=== PATIENT | female | born 1965 | race African-American/Black ===

== ENCOUNTER 2017-08-21 00:23 | Inpatient (IN) | payer BC, MEDICAID, OTHER ==
[~2017-08-21] VITALS: Ht 162.6 cm; Wt 118.8 kg
[2017-08-21] MEDS ORDERED: SODIUM CHLORIDE 0.9% 1,000 ML IV ONE (02:30)
[2017-08-21] MEDS ORDERED: OXYMETAZOLINE HCL NASAL SPRAY 15ML BOTHNSTRLS SCH (02:30)
[2017-08-21 02:47] LABS: MEAN CORPUSCULAR HEMOGLOBIN 35.3 pg (28.0-32.0); MEAN CORPUSCULAR VOLUME 107.9 fL (81.0-99.0); MEAN PLATELET VOLUME 9.8 fl (7.4-10.4); PLATELET 69 x1000/uL (130-400); RED BLOOD CELL COUNT 1.89 mill/uL (4.2-5.4); RED CELL DISTRIBUTION WIDTH 17.1 % (11.6-14.6)
[2017-08-21 02:53] LABS: HEMATOCRIT. 20.4 % (36.0-48.0); HEMOGLOBIN. 6.7 g/dL (12.0-16.0)
[2017-08-21 04:26] LABS: CARBON DIOXIDE 30 mEq/L (21-32); CHLORIDE 105 mEq/L (98-107)
[2017-08-21] MEDS ORDERED: ACETAMINOPHEN 500MG TABLET PO ONE (04:45)
[2017-08-21 04:48] LABS: INR 1.1; PROTHROMBIN TIME 11.5 sec (9.4-11.6)
[2017-08-21 07:31] LABS: T4 FREE 0.69 ng/dL (0.76-1.46)
[2017-08-21] MEDS ORDERED: SODIUM CHLORIDE 0.9% 1,000 ML IV SCH (07:40)
[2017-08-21] MEDS ORDERED: MAGNESIUM/ALUMINUM HYDROXIDE/SIMETHICONE 30ML UDC PO PRN (07:45)
[2017-08-21] MEDS ORDERED: DIPHENHYDRAMINE 50MG/ML VIAL IV PRN (07:45)
[2017-08-21] MEDS ORDERED: ONDANSETRON HCL 4MG/2ML VIAL IV PRN (07:45)
[2017-08-21 08:06] LABS: NUCLEATED RED BLOOD CELLS 14 /100 WBC; PLATELET ESTIMATE DECREASED
[2017-08-21 08:40] LABS: VITAMIN B12 SERUM 559 pg/mL (211-911)
[2017-08-21 10:07] LABS: TOTAL IRON BINDING CAPACITY 262 ug/dL (250-450)
[2017-08-21 14:41] VITALS: BP 114/61
[2017-08-21] MEDS: LEVOTHYROXINE SODIUM 100MCG TABLET PO SCH (16:13)
[2017-08-21 16:21] VITALS: BP 114/61
[2017-08-21] MEDS: ACETAMINOPHEN 325MG TABLET PO PRN (17:06)
[2017-08-21 20:00] VITALS: BP 112/51
[2017-08-21 21:08] LABS: MEAN CORPUSCULAR HEMOGLOBIN 34.1 pg (28.0-32.0); MEAN CORPUSCULAR VOLUME 101.9 fL (81.0-99.0); PLATELET 115 x1000/uL (130-400); RED BLOOD CELL COUNT 2.03 mill/uL (4.2-5.4); RED CELL DISTRIBUTION WIDTH 21.1 % (11.6-14.6)
[2017-08-21 21:15] LABS: HEMATOCRIT. 20.7 % (36.0-48.0); HEMOGLOBIN. 6.9 g/dL (12.0-16.0)
[2017-08-21 22:50] VITALS: BP 114/65
[2017-08-21 22:50] LABS: NUCLEATED RED BLOOD CELLS 14 /100 WBC; PLATELET ESTIMATE DECREASED
[2017-08-21 23:15] VITALS: BP 122/77
[2017-08-22 00:15] VITALS: BP 116/54
[2017-08-22 00:50] VITALS: BP 116/61
[2017-08-22 04:00] VITALS: BP 135/61
[2017-08-22] MEDS: ACETAMINOPHEN 325MG TABLET PO PRN (04:32)
[2017-08-22] MEDS: LEVOTHYROXINE SODIUM 100MCG TABLET PO SCH (07:10)
[2017-08-22 08:38] LABS: HEMOGLOBIN 7.6 g/dL (12.0-16.0); HEMOGLOBIN. 7.6 g/dL (12.0-16.0); MEAN CORPUSCULAR HEMOGLOBIN 32.6 pg (28.0-32.0); MEAN CORPUSCULAR VOLUME 98.7 fL (81.0-99.0); MEAN PLATELET VOLUME 8.8 fl (7.4-10.4); PLATELET 86 x1000/uL (130-400); RED BLOOD CELL COUNT 2.33 mill/uL (4.2-5.4); RED CELL DISTRIBUTION WIDTH 22.7 % (11.6-14.6)
[2017-08-22 10:22] LABS: NUCLEATED RED BLOOD CELLS 9 /100 WBC; PLATELET ESTIMATE DECREASED
[2017-08-22 16:42] VITALS: BP 105/54
[2017-08-22 17:35] VITALS: BP 105/54
== END 2017-08-22 20:25 | disposition home or self-care (01) | DRG 115 ==
LOC: ER 00:23 → 8WST 05:44 → EDBEDREQ 08:20 → EDBEDREQTM 08:20 → EDBEDREQSVC 08:20 → ENRESERV 12:41
PROVIDERS: ADMIT Internal Medicine; ATTEND Internal Medicine
PROC: 30233R1 Transfusion of Nonautologous Platelets into Peripheral Vein, Percutaneous Approach (ICD-10-PCS; principal; 2017-08-21)
PROC: 30233N1 Transfusion of Nonautologous Red Blood Cells into Peripheral Vein, Percutaneous Approach (ICD-10-PCS; 2017-08-21)
DX: R04.0 Epistaxis (principal); D61.818 Other pancytopenia; E89.0 Postprocedural hypothyroidism; Z83.3 Family history of diabetes mellitus; F17.200 Nicotine dependence, unspecified, uncomplicated; Z88.5 Allergy status to narcotic agent; Z88.0 Allergy status to penicillin; Z90.49 Acquired absence of other specified parts of digestive tract; Z88.2 Allergy status to sulfonamides
CPT/HCPCS: 36415; 80053; 82607; 83540; 83550; 84439; 84443; 84480; 85025; 85027; 85044; 85610; 86850; 86900; 86920; 99285; J7030; J7040; J7050; P9016; P9034

== ENCOUNTER 2017-08-25 18:37 | Inpatient (IN) | payer MEDICAID, OTHER ==
[~2017-08-25] VITALS: Ht 162.6 cm; Wt 122.0 kg
[2017-08-25 21:16] LABS: MEAN CORPUSCULAR HEMOGLOBIN 33.4 pg (28.0-32.0); MEAN CORPUSCULAR VOLUME 99.7 fL (81.0-99.0); MEAN PLATELET VOLUME 11.8 fl (7.4-10.4); PLATELET 70 x1000/uL (130-400); RED BLOOD CELL COUNT 2.08 mill/uL (4.2-5.4); RED CELL DISTRIBUTION WIDTH 22.2 % (11.6-14.6)
[2017-08-25 21:20] LABS: CHLORIDE 104 mEq/L (98-107)
[2017-08-25 21:24] LABS: INR 1.2; PARTIAL THROMBOPLASTIN TIME 29.4 sec (23.4-31.0)
[2017-08-25 21:26] LABS: CARBON DIOXIDE 29 mEq/L (21-32)
[2017-08-25 21:27] LABS: HEMATOCRIT. 20.8 % (36.0-48.0)
[2017-08-25 21:31] LABS: TROPONIN I < 0.02 ng/mL (0.00-0.04)
[2017-08-25 22:03] LABS: ATYPICAL LYMPHOCYTES 1; NUCLEATED RED BLOOD CELLS 8 /100 WBC
[2017-08-25 22:04] LABS: PLATELET ESTIMATE MARKEDLY DECREASED
[2017-08-25] MEDS ORDERED: NA PHOS,M-B/NA PHOS,DI-BA ENEMA 118ML PR PRN (23:00)
[2017-08-25] MEDS ORDERED: DESMOPRESSIN ACETATE 4MCG/ML AMP IV ONE (23:00)
[2017-08-25] MEDS ORDERED: CLONIDINE 0.1MG TABLET PO PRN (23:00)
[2017-08-25] MEDS ORDERED: IPRATROPIUM/ALBUTEROL 0.5-3(2.5)MG/3ML NEB INH PRN (23:00)
[2017-08-25] MEDS ORDERED: ZOLPIDEM TARTRATE 5MG TABLET PO PRN (23:00)
[2017-08-25] MEDS ORDERED: DIPHENHYDRAMINE 50MG/ML VIAL IV PRN (23:00)
[2017-08-25] MEDS ORDERED: KETOROLAC 15MG/ML VIAL IV PRN (23:00)
[2017-08-25] MEDS ORDERED: ACETAMINOPHEN 325MG TABLET PO PRN (23:00)
[2017-08-25] MEDS ORDERED: LORAZEPAM 2MG/ML CPJ IV PRN (23:00)
[2017-08-25] MEDS ORDERED: DOCUSATE SODIUM 100MG CAPSULE PO PRN (23:00)
[2017-08-25] MEDS ORDERED: MAGNESIUM/ALUMINUM HYDROXIDE/SIMETHICONE 30ML UDC PO PRN (23:00)
[2017-08-25] MEDS ORDERED: GUAIFENESIN 200MG/10ML SUGAR FREE UDC PO PRN (23:00)
[2017-08-25] MEDS ORDERED: ONDANSETRON HCL 4MG/2ML VIAL IV PRN (23:00)
[2017-08-25 23:53] VITALS: BP 109/51
[2017-08-26] VITALS (9 sets, daily range): BP systolic 95–120; BP diastolic 46–76
[2017-08-26] MEDS ORDERED: SODIUM CHLORIDE 0.9% IV NR (00:30)
[2017-08-26] MEDS ORDERED: DESMOPRESSIN ACETATE IV NR (00:30)
[2017-08-26 07:44] LABS: HEMATOCRIT 21.6 % (36.0-48.0); HEMOGLOBIN 7.2 g/dL (12.0-16.0)
[2017-08-26] MEDS ORDERED: PANTOPRAZOLE SODIUM 40 MG/VIAL IV SCH (09:00)
[2017-08-26 10:55] LABS: *AMPHETAMINES SCREEN URINE NEGATIVE (NEGATIVE); *BARBITURATES SCREEN URINE NEGATIVE (NEGATIVE); *BENZODIAZEPINES SCREEN URINE NEGATIVE (NEGATIVE); *COCAINE SCREEN URINE NEGATIVE (NEGATIVE); CANNABINOID URINE SCREEN PRESUMTIVE POSITIVE (NEGATIVE); METHADONE URINE SCREEN NEGATIVE (NEGATIVE); OPIATES URINE SCREEN NEGATIVE (NEGATIVE); PHENCYCLIDINE URINE SCREEN NEGATIVE (NEGATIVE)
[2017-08-26 12:01] LABS: HEMATOCRIT. 22.7 % (36.0-48.0); HEMOGLOBIN. 7.5 g/dL (12.0-16.0); MEAN CORPUSCULAR HEMOGLOBIN 32.1 pg (28.0-32.0); MEAN CORPUSCULAR VOLUME 96.9 fL (81.0-99.0); MEAN PLATELET VOLUME 9.9 fl (7.4-10.4); PLATELET 52 x1000/uL (130-400); RED BLOOD CELL COUNT 2.34 mill/uL (4.2-5.4); RED CELL DISTRIBUTION WIDTH 21.6 % (11.6-14.6)
[2017-08-26 13:13] LABS: NUCLEATED RED BLOOD CELLS 9 /100 WBC; PLATELET ESTIMATE DECREASED
== END 2017-08-26 16:20 | disposition home or self-care (01) | DRG 115 ==
LOC: ER 18:37 → 5WST 22:42 → EDBEDREQTM 22:43 → EDBEDREQ 22:43 → ENRESERV 22:47
PROVIDERS: ADMIT Internal Medicine; ATTEND Internal Medicine
PROC: 30233N1 Transfusion of Nonautologous Red Blood Cells into Peripheral Vein, Percutaneous Approach (ICD-10-PCS; principal; 2017-08-25)
PROC: 2Y41X5Z Packing of Nasal Region using Packing Material (ICD-10-PCS; 2017-08-25)
DX: R04.0 Epistaxis (principal); D69.6 Thrombocytopenia, unspecified; Z68.42 Body mass index [BMI] 45.0-49.9, adult; E44.1 Mild protein-calorie malnutrition; E66.01 Morbid (severe) obesity due to excess calories; E03.9 Hypothyroidism, unspecified; F12.10 Cannabis abuse, uncomplicated; F17.210 Nicotine dependence, cigarettes, uncomplicated; Z96.659 Presence of unspecified artificial knee joint; Z88.5 Allergy status to narcotic agent; Z88.0 Allergy status to penicillin; Z90.49 Acquired absence of other specified parts of digestive tract; Z71.51 Drug abuse counseling and surveillance of drug abuser
CPT/HCPCS: 36415; 71010; 80053; 80305; 83036; 83690; 83880; 84484; 85014; 85018; 85025; 85610; 85730; 86850; 86900; 86920; 93005; 99285; C9113; J1200; J2597; J7050; P9016